=== PATIENT | female | born 1990 | race Caucasian/White ===

== ENCOUNTER 2016-07-27 21:01 | Emergency (ER) | payer MEDICAID ==
--- NOTE | 2016-07-28 19:49 | ER ---
ADMIT: 07/27/2016 RM/LOC: ER [facility] MR#: [id number] [facility] [address] [place] [id number] [address] [place] [id number] Emergency Room Report SEX: F AGE: 26 : 1990 DATE: 07/27/2016 TIME: 2101 hours. Please refer to my T-sheet for complete H and P. HISTORY OF PRESENT ILLNESS: Briefly, the patient is a 26-year-old, who comes in short of breath and cough, it has been going on about 2 weeks. She is still smoking, but said the last 24 hours it is worse, she is coughing and bringing up some phlegm. She is using her inhalers, they just do not seem to make her feel better. PHYSICAL EXAMINATION: VITAL SIGNS: Blood pressure 122/76, pulse 119, respirations 26, temp 97, and sat 99%. GENERAL: In no acute distress. HEENT: Grossly normal. LUNGS: Expiratory wheezes with prolonged expiration. HEART: Regular. ABDOMEN: Soft. SKIN: No rash. EMERGENCY DEPARTMENT COURSE: We gave her a DuoNeb, Zithromax 500 p.o., and Decadron 10 IM. She was much improved, ready for discharge. ASSESSMENT: 1. Acute asthma exacerbation. 2. Acute bronchitis. 3. Nicotine abuse. PLAN: Stop smoking. Prednisone 20 b.i.d. for 5 days. Return if worse. Z- Maximus. Continue albuterol. Aj Carrera MD/ aruna JOB #: [id number] CC: Jair Heck MD, Attending Physician Jose Ashraf MD, Family Physician
== END 2016-07-27 22:00 | disposition home or self-care (01) ==
LOC: ER 21:01
DX: J45.901 Unspecified asthma with (acute) exacerbation (principal); J20.9 Acute bronchitis, unspecified; F17.210 Nicotine dependence, cigarettes, uncomplicated; Z88.5 Allergy status to narcotic agent